=== PATIENT | female | born 1965 | race African-American/Black ===

== ENCOUNTER 2019-01-28 16:54 | Emergency (ER) | payer SELFPAY ==
[~2019-01-28] VITALS: Ht 149.9 cm; Wt 41.1 kg
[2019-01-28 17:11] VITALS: BP 124/70
== END 2019-01-28 17:34 | disposition home or self-care (01) ==
LOC: ED 17:15
DX: K08.89 Other specified disorders of teeth and supporting structures (principal)
CPT/HCPCS: 99283

== ENCOUNTER 2020-07-22 10:22 | Emergency (ER) | payer MEDICAID ==
[~2020-07-22] VITALS: Ht 149.9 cm; Wt 41.3 kg
[2020-07-22 10:23] VITALS: BP 116/69
--- NOTE | 2020-07-22 11:32 | NUR ---
Patient given discharge instructions and they have confirmed that they understand the instructions. Patient ambulatory with steady gait.
== END 2020-07-22 11:33 | disposition home or self-care (01) ==
LOC: ED 11:11
DX: K02.9 Dental caries, unspecified (principal); K08.89 Other specified disorders of teeth and supporting structures
CPT/HCPCS: 99283

== ENCOUNTER 2021-06-26 19:52 | Emergency (ER) | payer MEDICAID ==
[~2021-06-26] VITALS: Ht 149.9 cm; Wt 39.0 kg
[2021-06-26 19:54] VITALS: BP 131/84
[2021-06-26] MEDS ORDERED: IBUPROFEN 200 MG TABLET ONE (20:30)
[2021-06-26] MEDS ORDERED: IBUPROFEN 200 MG TABLET PO ONE (20:30)
--- NOTE | 2021-06-26 20:38 | NUR ---
pt medicated per jan. aware of pending xray
--- NOTE | 2021-06-26 21:29 | NUR ---
sri wrap appied. pms pre & post application. wheeled to checkout.
== END 2021-06-26 21:31 | disposition home or self-care (01) ==
LOC: ED 21:05
DX: S90.32XA Contusion of left foot, initial encounter (principal); M19.90 Unspecified osteoarthritis, unspecified site; F17.210 Nicotine dependence, cigarettes, uncomplicated; X58.XXXA Exposure to other specified factors, initial encounter; Y93.89 Activity, other specified; Y92.89 Other specified places as the place of occurrence of the external cause; Y99.8 Other external cause status
CPT/HCPCS: 99283; 99406